=== PATIENT | male | born 1940 | race Caucasian/White ===

== ENCOUNTER 2017-10-16 09:32 | Emergency (ER) | payer OTHER ==
[~2017-10-16] VITALS: Ht 180.3 cm; Wt 86.4 kg
[2017-10-16 12:06] VITALS: BP 154/95
== END 2017-10-16 12:08 | disposition home or self-care (01) ==
LOC: EME 09:32
DX: T78.3XXA Angioneurotic edema, initial encounter (principal); K21.9 Gastro-esophageal reflux disease without esophagitis; Z88.0 Allergy status to penicillin
CPT/HCPCS: 99281; 99284; J7512